=== PATIENT | female | born 1950 | race Caucasian/White ===

== ENCOUNTER → 2018-07-08 13:12 | Outpatient (CLI) | payer MEDICARE, BC, SELFPAY ==
--- NOTE | 2018-07-08 | DI.RAD.S_ITS ---
This blank DEXA report has been sent in error by the PACS system. The correct and complete report will be forthcoming in 1-2 days. Thank you for your patience and understanding. Dictated by: Yomaira García MD, PhD on 07/08/2018 at 15:16 Approved by: Yomaira García MD, PhD on 07/08/2018 at 15:16
== END ==
PROVIDERS: Visit Provider Internal Medicine
DX: M85.852 Other specified disorders of bone density and structure, left thigh (principal); Z78.0 Asymptomatic menopausal state
CPT/HCPCS: 77080

== ENCOUNTER → 2020-06-30 14:09 | Outpatient (CLI) | payer MEDICARE, BC, SELFPAY ==
[2020-07-02 09:08] LABS: COVID19 Sendout Not Detected (Not Detect)
== END ==
PROVIDERS: Visit Provider Nurse Practitioner
DX: Z11.59 Encounter for screening for other viral diseases (principal)
CPT/HCPCS: 87635

== ENCOUNTER 2020-07-03 12:44 | Day surgery (SDC) | payer MEDICARE, BC, SELFPAY ==
--- NOTE | 2020-07-03 | PATH_ITS ---
[facility] Accession Number: [id number] . 01 Material submitted: . colon - COLON POLYP AT 40CM . 02 Diagnosis: Colon Polyp at 40 cm: Tubular adenoma. MRV 07/06/2020 1008 Local . 02 Electronically signed: . Rocío Angel MD, Pathologist NPI- [id number] . 01 Gross description: . COLON POLYP AT 40CM: Received in formalin is 1 fragment(s) of perera, soft tissue measuring 0.3 x 0.3 x 0.3 cm submitted entirely in 1 cassette(s) /QBJ 07/04/2020 0914 Local . 02 Pathologist provided ICD-10: K63.5 . 02 CPT . 593418 Performed at: 01 [facility] [address] [id number] MD Timur Lambert MD Phone: [phone] Performed at: 02 [facility] [address] [place], [place] [id number] MD Lola Elmore MD Phone: [phone]
[2020-07-03 13:03] VITALS: BP 153/82; PULSE 106; RESP 18; TEMP 36.6; O2SAT 96; BMI 34.2
[2020-07-03] MEDS: SODIUM CHLORIDE 0.9% 1,000 ML 200 ML IV (13:20)
--- NOTE | 2020-07-03 13:46 | PM.HP.1 ---
History of Present Illness History of Present Illness Date Patient Seen: 07/03/20 Time Patient Seen: 13:46 Chief complaint: SCREENING COLONOSCOPY Narrative: This is a 70-year-old woman with history of polyps, and family history of colon polyps and colon cancer. Her last colonoscopy was 10 years ago. She denies any history of melena, hematochezia, unexplained abdominal pain, unexplained weight loss. She says she is otherwise well. She denies any significant cardiac dysfunction. She does have hypertension and irregular heartbeat, but has never had a heart attack or stroke. ROS: Positive for cough secondary to allergies, arthritis, constipation, depression, eczema/psoriasis, vertigo, Thirteen system review is otherwise negative other than as mentioned below and in HPI. PE: GENERAL: Well groomed and cooperative. Appears stated age. Answers questions promptly and appropriately. Vital signs noted. HENT: Normocephalic, atraumatic. Hearing intact. EYES: Conjunctiva pink, sclera white, no periorbital swelling. CARDIOVASCULAR: Regular rate. No pedal edema. RESPIRATORY: Non-tachypneic, breathing comfortably on room air. GASTROINTESTINAL: Abdomen soft and non-distended GENITALURINARY: No flank tenderness. MUSCULOSKELETAL: Equal tone and mass bilaterally. SKIN: Warm, dry, soft, appropriate color for ethnicity. No other lesions, rashes, or wounds. NEURO: Alert and Oriented X 3. No gross sensory deficits, or cognitive issues. PSYCH: Appropriate affect and mood. Patient History Family & Social History Social History: household members spouse Tobacco & Substance use: Smoking Status Never smoker alcohol intake frequency a few times a week Substance Use Type does not use Meds Home Medications and Allergies Home Medications Medication Instructions Recorded Confirmed Type atorvastatin 10 mg PO BEDTIME 07/03/20 07/03/20 History cholecalciferol (vitamin D3) 50 mcg PO DAILY 07/03/20 07/03/20 History [Vitamin D3] citalopram 40 mg PO DAILY 07/03/20 07/03/20 History lisinopril 10 mg PO DAILY 07/03/20 07/03/20 History Allergies Allergy/AdvReac Type Severity Reaction Status Date / Time cat dander Allergy Intermediate Congested Verified 07/03/20 12:59 dog dander Allergy Intermediate Congested Verified 07/03/20 12:59 pollen extracts Allergy Intermediate Cough Verified 07/03/20 12:59 Exam Vital Signs (past 8 hours): - 07/03/20 13:03 Temperature 98 F Pulse Rate 106 H Respiratory Rate 18 Blood Pressure 153/82 H Pulse Oximetry 96 Oxygen Delivery Method Room Air Assessment & Plan Assessment and plan (1) Personal history of colonic polyps: Status: Acute Assessment & Plan narrative: Risks and benefits of screening colonoscopy and possible polypectomy were discussed with the patient including risk of bleeding, perforation, need for additional procedures, risks of anesthesia. The patient desires to proceed with the colonoscopy procedure. COVID-19 COVID-19 status: Negative Result date/Date tested (Pos, Neg/Pending): 06/30/20 Time Spent With Patient Time with patient: 15-24 minutes Quality VTE Deep Vein Thrombosis/Pulmonary Embolism Present on Admission: No
--- NOTE | 2020-07-03 13:51 | P.OP.ENDO_ITS ---
Operative Date/Time/Diagnoses Date of procedure: 07/03/20 Time of procedure: 13:51 Pre-op diagnosis: Personal history of colon polyps Post-op diagnosis: other (Single polyp) Procedure & Clinicians Study performed: Colonoscopy Procedural sedation performed by the endoscopist Polypectomy with cold forceps Same procedure as scheduled: Yes Indications: Personal history of colon polyps Surgeon: Saira Alarcon Procedure Notes SCOAP/Timeout: Performed Procedure in detail: The patient was brought to the room and placed in left lateral decubitus position with all bony prominences padded. A time-out was performed and then the patient was given procedural sedation starting with 3 mg of Versed and 100 mcg of fentanyl. A total of 5 mg of Versed and 200 micro g of fentanyl were given for the entire procedure. Vitals were monitored throughout the procedure and remained stable. Once adequately sedated, the procedure was begun. A rectal exam was performed revealing no abnormalities. The colonoscope was then introduced to the rectum and advanced to the cecum in the usual fashion. The cecum was identified by the appendiceal orifice, the mucosal tri- fold, and the ileocecal valve. The scope was then retracted while rotating side to side and examining each mucosal fold. A small polyp was found at 40 cm, and removed with cold forceps. At the conclusion of the procedure retroflexion was performed and small grade 1-2 internal hemorrhoids without stigmata of bleeding were seen. The scope was then withdrawn from the rectum the procedure was concluded. The patient tolerated the procedure well and was transferred to the PACU in stable condition. Scope withdrawal time: 10 Sedation minutes: 21 Findings: polyp Specimen(s): other (Single polyp from 40 cm) Complications: none Impression: Single benign-appearing polyp Post-procedure Recommendations: Colonscopy in 10 years (As long as pathology is benign) Follow up: as needed Disposition: PACU
[2020-07-03] MEDS: MIDAZOLAM 5 MG/5 ML VIAL IV (14:00)
[2020-07-03] MEDS: fentaNYL 250 MCG/5 ML INJ IV (14:02)
[2020-07-03 14:27] VITALS: BP 119/76; PULSE 96; RESP 14; TEMP 36.6; O2SAT 91
[2020-07-03 14:32] VITALS: BP 118/75; PULSE 93; RESP 18; O2SAT 93
[2020-07-03 14:38] VITALS: BP 118/74; PULSE 93; RESP 14; O2SAT 95
[2020-07-03 14:42] VITALS: BP 128/72; PULSE 88; RESP 16; TEMP 36.5; O2SAT 96
[2020-07-03 15:11] VITALS: BP 146/75; PULSE 72; RESP 16; TEMP 36.9; O2SAT 98
--- NOTE | 2020-07-03 15:13 | SUR.PHASEII ---
Assisted patient with getting dressed. Denies abdominal pain or nausea at this time and tolerated juice without difficulty. Patient to vehicle via wheelchair to go home with .
== END 2020-07-03 15:14 | disposition home or self-care (01) ==
PROVIDERS: PCP Student in an Organized Health Care Education/Training Program; Referring Provider Student in an Organized Health Care Education/Training Program; Visit Provider Surgery
PROC: 0DJD8ZZ Inspection of Lower Intestinal Tract, Via Natural or Artificial Opening Endoscopic (ICD-10-PCS; CPT 45378; principal; 2020-07-03 13:45)
DX: Z12.11 Encounter for screening for malignant neoplasm of colon (principal); Z86.010 Personal history of colon polyps; I10 Essential (primary) hypertension; I49.9 Cardiac arrhythmia, unspecified; K64.0 First degree hemorrhoids; D12.6 Benign neoplasm of colon, unspecified
CPT/HCPCS: 45380; 99152; J2250; J3010

== ENCOUNTER → 2020-07-11 19:05 | Outpatient (ROUT) | payer MEDICARE, BC, SELFPAY | PROVIDERS: PCP Student in an Organized Health Care Education/Training Program; Visit Provider Student in an Organized Health Care Education/Training Program | DX: R39.9 Unspecified symptoms and signs involving the genitourinary system (principal) | CPT/HCPCS: 87077; 87086; 87186 ==

== ENCOUNTER → 2021-02-25 18:58 | Outpatient (ROUT) | payer MEDICARE, BC, SELFPAY ==
[2021-02-25 19:28] LABS: Add Manual Diff / Slide Review NO; Basophils Absolute Auto 100 /uL (0-100); Basophils Percent Auto 2.1 % (0-2); Eosinophils Absolute Auto 200 /uL (0-450); Eosinophils Percent Auto 3.7 % (2-4); Hematocrit 44.9 % (36-46); Hemoglobin 14.8 g/dL (12.0-16.0); Lymphocytes Absolute Auto 1700 /uL (1100-4500); Lymphocytes Percent Auto 27.2 % (25-40); Mean Corpuscular HGB Conc 32.9 % (30-36); Mean Corpuscular Hemoglobin 30.6 PG (26-34); Mean Corpuscular Volume 92.9 fL (80-100); Monocytes Absolute Auto 500 /uL (0-900); Monocytes Percent Auto 7.6 % (3-14); Neutrophils Absolute Auto 3800 /uL (1500-7000); Neutrophils Percent Auto 59.4 % (50-75); Platelet Count 234 X10^3/uL (150-400); Red Blood Cell Count 4.83 X10^6/uL (4.0-5.2); Red Cell Distribution Width 12.7 % (11.6-14.8); White Blood Cell Count 6.4 X10^3/uL (4.5-11.0)
[2021-02-25 19:36] LABS: Alanine Aminotransferase 22 IU/L (<35); Albumin 4.2 g/dL (3.5-5.0); Albumin Globulin Ratio 1.4 (1.0-2.8); Alkaline Phosphatase 82 U/L (38-126); Aspartate Aminotransferase 26 IU/L (14-36); BUN Creatinine Ratio 21.6 (6-22); Bilirubin Total 0.9 mg/dL (0.2-1.3); Blood Urea Nitrogen 16 mg/dL (7-17); C-Reactive Protein Quant < 0.5 mg/dL (<1.0); Carbon Dioxide 25 mmol/L (22-32); Chloride 107 mmol/L (98-107); Estimated Glomerular Filt Rate > 60.0 mL/min (>60); Glucose 96 mg/dL (80-110); HEMOLYSIS < 15 (0-50); Potassium 4.5 mmol/L (3.4-5.1); Sodium 138 mmol/L (137-145); Total Protein 7.2 g/dL (6.3-8.2)
[2021-02-25 20:02] LABS: Erythrocyte Sedimentation Rate 7 MM/HR (0-20)
[2021-02-25 20:04] LABS: TSH w/ Reflex to FT4 0.82 uIU/mL (0.47-4.68)
[2021-02-28 18:07] LABS: ANA Screen, IFA Negative (.)
== END ==
PROVIDERS: PCP Student in an Organized Health Care Education/Training Program; Visit Provider Student in an Organized Health Care Education/Training Program
DX: R20.2 Paresthesia of skin (principal)
CPT/HCPCS: 80053; 84443; 85025; 85651; 86038; 86140

== ENCOUNTER → 2021-02-26 15:16 | Outpatient (CLI) | payer MEDICARE, BC, SELFPAY ==
--- NOTE | 2021-02-26 15:24 | DI.RAD.S_ITS ---
PROCEDURE: XR THORACIC SPINE 2V INDICATIONS: BI LEG PAIN TECHNIQUE: 2 views of the thoracic spine were acquired. COMPARISON: None. FINDINGS: Bones: No fracture identified. Multilevel degenerative endplate sclerosis and spurring. Diffuse facet arthropathy. Partially visualized lateral curvature of the spine. Soft tissues: No paravertebral stripe thickening. IMPRESSION: No acute fracture seen. Diffuse discogenic changes. Dictated by: Piyush Woods M.D. on 02/26/2021 at 16:07 Approved by: Piyush Woods M.D. on 02/26/2021 at 16:08
--- NOTE | 2021-02-26 15:24 | DI.RAD.S_ITS ---
PROCEDURE: XR LUMBAR SPINE 2-3V INDICATIONS: BI LEG PAIN TECHNIQUE: 2 views of the lumbar spine were acquired. COMPARISON: None. FINDINGS: Bones: No evidence of fracture. There is levoscoliosis. Severe narrowing of the L2-L3 disc space. Moderate narrowing of the L3-L4 and L5-S1 disc spaces. Diffuse mild narrowing of the visualized lower thoracic disc spaces. Soft tissues: Overlying bowel gas pattern is normal. No suspicious soft tissue calcifications. IMPRESSION: Multilevel spondylosis most pronounced at L2-L3 and facet arthropathy Levoscoliosis. Dictated by: Piyush Woods M.D. on 02/26/2021 at 16:06 Approved by: Piyush Woods M.D. on 02/26/2021 at 16:07
== END ==
PROVIDERS: PCP Student in an Organized Health Care Education/Training Program; Referring Provider Student in an Organized Health Care Education/Training Program; Visit Provider Student in an Organized Health Care Education/Training Program
DX: M47.816 Spondylosis without myelopathy or radiculopathy, lumbar region (principal); M47.814 Spondylosis without myelopathy or radiculopathy, thoracic region; M79.605 Pain in left leg; R20.2 Paresthesia of skin; M79.604 Pain in right leg; M41.9 Scoliosis, unspecified
CPT/HCPCS: 72070; 72100

== ENCOUNTER → 2021-04-18 11:35 | Outpatient (CLI) | payer MEDICARE, BC, SELFPAY ==
--- NOTE | 2021-04-18 11:38 | DI.MRI.S_ITS ---
PROCEDURE: MR LUMBAR SPINE WO CON INDICATIONS: Difficulty in walking, not elsewhere classified TECHNIQUE: Noncontrast sagittal T1 spin echo and T2 fast echo, sagittal STIR, axial T1 and T2 fast spin echo through the lumbar spine. In cases with scoliosis, additional coronal T2 fast spin echo may be performed. COMPARISON: [facility], CR, XR LUMBAR SPINE 2-3V, 02/26/2021, 15:22. FINDINGS: Image quality: Excellent. Alignment and Curvature: Mild convex left lumbar scoliosis noted. Bone Marrow: Marrow is of normal overall signal. No acute vertebral body compression fractures. Spinal Cord: Incidental note is made of low-lying conus which terminates at the L2-3 level. Paraspinous Soft Tissues: No paravertebral masses. T12-L1: Normal appearance. L1-L2: Normal appearance. L2-L3: Severe disc space narrowing and degenerative endplate changes associated with hypertrophic facet joints and ligamentum flavum laxity to result in moderate central stenosis. There is moderate bilateral foraminal stenosis. L3-L4: Mild disc space narrowing with large circumferential disc bulge and hypertrophic facet joints combined with ligamentum flavum laxity results in severe central stenosis, narrowing the AP diameter of the thecal sac to 5 mm L4-L5: Disc height is preserved. Circumferential disc bulge, hypertrophic facet joints and ligamentum flavum laxity resulting in moderate central stenosis, narrowing the thecal sac to 7 mm. Moderate left and mild right foraminal stenosis. L5-S1: Mild disc space narrowing and circumferential disc bulge with hypertrophic facet joints results in mild central and no foraminal stenosis. IMPRESSION: Approved by: Len Rey M.D. on 04/18/2021 at 19:26 1. Degenerative disc disease and arthropathy resulting in varying degrees of central and foraminal stenosis, including severe central stenosis at L3-4 and moderate central stenosis at L4-5 2. Incidental low lying conus terminates at the L2-3 level.
== END ==
PROVIDERS: PCP Student in an Organized Health Care Education/Training Program; Referring Provider Student in an Organized Health Care Education/Training Program; Visit Provider Student in an Organized Health Care Education/Training Program
DX: M51.16 Intervertebral disc disorders with radiculopathy, lumbar region (principal); M51.17 Intervertebral disc disorders with radiculopathy, lumbosacral region; M47.26 Other spondylosis with radiculopathy, lumbar region; M47.27 Other spondylosis with radiculopathy, lumbosacral region; M48.061 Spinal stenosis, lumbar region without neurogenic claudication; R26.2 Difficulty in walking, not elsewhere classified
CPT/HCPCS: 72148

== ENCOUNTER → 2021-04-23 14:19 | Outpatient (CLI) | payer MEDICARE, BC, SELFPAY ==
--- NOTE | 2021-04-23 14:24 | DI.RAD.S_ITS ---
PROCEDURE: XR HIP W PEL IF DONE SAIMA MIN 4V INDICATIONS: BI HIP PAIN TECHNIQUE: AP pelvis with lateral view(s) of the bilateral hip(s). COMPARISON: None. FINDINGS: Bones: No fractures or dislocations. Pelvic ring appears intact. No suspicious bony lesions. Soft tissues: The visualized bowel gas pattern is normal. No suspicious soft tissue calcifications. IMPRESSION: Mild degenerative hip joint osteoarthritis symmetric bilaterally, without trauma. Dictated by: Jose Ramon Anton M.D. on 04/23/2021 at 16:34 Approved by: Jose Ramon Anton M.D. on 04/23/2021 at 16:34
== END ==
PROVIDERS: PCP Student in an Organized Health Care Education/Training Program; Referring Provider Student in an Organized Health Care Education/Training Program; Visit Provider Student in an Organized Health Care Education/Training Program
DX: M25.551 Pain in right hip (principal); M25.552 Pain in left hip; M16.0 Bilateral primary osteoarthritis of hip
CPT/HCPCS: 73522